=== PATIENT | male | born 1965 | race Caucasian/White ===

== ENCOUNTER 2017-05-22 02:16 | Emergency (ER) | payer SELFPAY ==
[~2017-05-22] VITALS: Ht 177.8 cm; Wt 77.0 kg
[2017-05-22 02:37] VITALS: BP 104/62; PULSE 73; RESP 16; TEMP 98.4; O2SAT 98
--- NOTE | 2017-05-22 03:05 | PD ---
HPI Chief Complaint: Alcohol/Drug Intoxication Time Seen by Provider: 02:40 Travel History International Travel<30 days: No Contact w/Intl Traveler<30days: No Traveled to known affect area: No History of Present Illness HPI 52-year-old male presents via EMS for evaluation of intoxication. The patient reports that he was recently in [place], he is returning home to [place]. He reports that he was drinking at a bar today. He drank several beers. He doesn' t really know why he is here and says that he feels "great." He denies any headache, blurred vision, chest pain or shortness of breath, nausea or vomiting , pain in the extremities or the torso. He has no complaints at this time. [facility] Past Medical History Medical History: Denies Significant Hx Tetanus Vaccination: Unknown Past Surgical History Surgical History: No Previous Surgery Social History Alcohol Use: Yes (DAILY) Tobacco Use: No Substance Use: Yes Allergies-Medications (Allergen,Severity, Reaction): Coded Allergies: No Known Allergies (Unverified , 05/22/17) Review of Systems Except as stated in HPI: all other systems reviewed are Neg Physical Exam Narrative GENERAL: Disheveled male in no acute distress. Awake and alert. Intoxicated. SKIN: Warm and dry. There is a small abrasion and hematoma on the left forehead. HEAD: Skin as noted above. Normocephalic. EYES: Pupils, slight anisocoria. no scleral icterus. No injection or drainage. ENT: No nasal bleeding or discharge. Mucous membranes pink and moist. NECK: Trachea midline. No JVD. CARDIOVASCULAR: Regular rate and rhythm. No murmur appreciated. RESPIRATORY: No accessory muscle use. Clear to auscultation. Breath sounds equal bilaterally. GASTROINTESTINAL: Abdomen soft, non-tender, nondistended. Hepatic and splenic margins not palpable. MUSCULOSKELETAL: No obvious deformities. No clubbing. No cyanosis. No edema. NEUROLOGICAL: Awake and alert. No obvious cranial nerve deficits. Motor grossly within normal limits. Slurred speech. PSYCHIATRIC: Intoxicated. Data Data Last Documented VS Vital Signs Date Time Temp Pulse Resp B/P Pulse Ox O2 Delivery O2 Flow Rate FiO2 05/22/17 02:37 98.4 73 16 104/[address] Brain W/O Iv Contrast(Rout) (05/22/17 ) [facility] Medical Decision Making Medical Screen Exam Complete: Yes Emergency Medical Condition: Yes Medical Record Reviewed: Yes Differential Diagnosis Alcohol intoxication, closed head injury, intracranial hemorrhage Narrative Course 52-year-old male who was reportedly drinking at a bar tonight was brought in for evaluation of intoxication. On examination he has a small abrasion and hematoma in the left forehead. He also has slight anisocoria. Therefore CT imaging of the brain has been ordered. CT brain is negative. The patient will remain here until he is clinically sober and he will be discharged home. Diagnosis Primary Impression: Alcohol intoxication Qualified Code: F10.920 - Alcoholic intoxication without complication Additional Instructions: If you consume alcohol, Do so in moderation. Med/Other Pt SpecificInfo: No Change to Meds Disposition: 01 DISCHARGE HOME Condition: Stable Torey Calero May 22, 2017 03:05
--- NOTE | 2017-05-22 04:45 | RADRPT ---
EXAM DATE/TIME: 05/22/2017 04:27 [facility] COMPARISON: No previous studies available for comparison. INDICATIONS : Cephalgia. RADIATION DOSE: 56.35 CTDIvol (mGy) MEDICAL HISTORY : Substance abuse. SURGICAL HISTORY : None. ENCOUNTER: Initial ACUITY: 1 day PAIN SCALE: 4/10 LOCATION: cranial TECHNIQUE: Multiple contiguous axial images were obtained of the head. Using automated exposure control and adj ustment of the mA and/or kV according to patient size, radiation dose was kept as low as reasonably a chievable to obtain optimal diagnostic quality images. DICOM format image data is available electro nically for review and comparison. FINDINGS: CEREBRUM: The ventricles are normal for age. No evidence of midline shift, mass lesion, hemorrhage or acute in farction. No extra-axial fluid collections are seen. POSTERIOR FOSSA: The cerebellum and brainstem are intact. The 4th ventricle is midline. The cerebellopontine angle i s unremarkable. EXTRACRANIAL: The visualized portion of the orbits is intact. SKULL: The calvaria is intact. No evidence of skull fracture. CONCLUSION: 1. No evidence of acute intracranial pathology. No masses are identified. Oswaldo Moran MD on May 22, 2017 at 4:43 Board Certified Radiologist. This report was verified electronically.
[2017-05-22 05:40] VITALS: BP 115/16
== END 2017-05-22 06:00 | disposition home or self-care (01) ==
LOC: NEDAMB 02:16
DX: F10.120 Alcohol abuse with intoxication, uncomplicated (principal)
CPT/HCPCS: 70450; 99284